=== PATIENT | female | born 1930 | race Caucasian/White ===

== ENCOUNTER 2018-04-24 19:25 | Emergency (ER) | payer MEDICARE ==
[~2018-04-24] VITALS: Ht 160 cm; Wt 60.0 kg
[2018-04-24 19:32] VITALS: BP 138/75
[2018-04-24] MEDS ORDERED: KETOROLAC 30 MG/1 ML ONE (19:47)
[2018-04-24] MEDS ORDERED: METHOCARBAMOL 750 MG TABLET ONE (19:47)
[2018-04-24] MEDS ORDERED: PLEASE ENTER ALLERGIES MC SCH (20:00)
[2018-04-24] MEDS ORDERED: KETOROLAC 30 MG/1 ML IM ONE (20:00)
[2018-04-24] MEDS ORDERED: METHOCARBAMOL 750 MG TABLET PO ONE (20:00)
[2018-04-24] MEDS ORDERED: BACITRACIN ZINC OINT 500U/GM, 0.9 GM ONE (20:39)
== END 2018-04-24 21:43 | disposition home or self-care (01) ==
LOC: ED 21:10
DX: S33.5XXA Sprain of ligaments of lumbar spine, initial encounter (principal); I10 Essential (primary) hypertension; E78.00 Pure hypercholesterolemia, unspecified; W19.XXXA Unspecified fall, initial encounter; Y93.89 Activity, other specified; Y99.8 Other external cause status; Y92.89 Other specified places as the place of occurrence of the external cause
CPT/HCPCS: 96372; 99283; J1885